=== PATIENT | male | born 1985 ===

== ENCOUNTER 2025-04-09 21:07 | Inpatient (IN) | payer OTHER, SELFPAY ==
--- OUTSIDE RECORDS SUMMARY | 2025-04-09 21:17 | XMS_ITS | Encounter Summary ---
Author Organization [employer]: [facility] Address [address] [place] [address] [place] [address] Care Team Providers Care Pack Train Driver Name Role Phone Pcp, Consuelo MD Primary Care Provider Unavailabl e Encounter Details Date Type Department Care Team (Late st Contact Info) Description 06/02/2020 Notation [facility] Health Information Management [facility], [address] [place] [address] Generic, Provider [address] [address] [employer] Social History Tobacco Use Types Packs/Day Years Used Date Smoking Tobacco: Some Days Cigarettes Smokeless Tobacco: Current Alcohol Use Standard Drinks/Week Comments Never 0 (1 standard drink = 0.6 oz pur e alcohol) occ Social Connection and Isolation Panel Answer Date Recorded In a typical week, how many times do you talk on the phone with family, friends, or neighbors? Never 06/02/2020 How often do you get together with friends or re latives? Never 06/02/2020 How often do you attend bahai or islam serv ices? Never 06/02/2020 Do you belong to any clubs o r organizations such as bahai groups, unions, fraternal or athletic groups, or school groups? No 06/02/2020 How often do you attend meet ings of the clubs or organizations you belong to? Never 06/02/2020 Are you , , di vorced, , never , or living with a partner? Never 06/02/2020 AUDIT-C Answer Date Recorded Frequency of Alcohol Consumption Never 06/02/2020 Average Number of Drinks Not asked 021 Frequency of Binge Drinking Not asked 10/2020 Overall Financial Resource Strain (CARDIA) Answe r Date Recorded How hard is it for you to pa y for the very basics like food, housing, medical care, and heating? Very hard 06/02/2020 PHQ-2 Answer Date Recorded PHQ-2 Total Score - Complete PHQ-9 if score >=3 4 06/02/2020 [facility] Occupat ional [facility] - Occupational Stress Questionnaire Answer Date Recorded Do you feel stress - tense, restless, nervous, or anxious, or unable to sleep at night because your mind is troubled all the time - these days? Very much 06/02/2020 Exercise Vital Sign Answer Date Recorde d On average, how many days pe r week do you engage in moderate to strenuous exercise (like a brisk walk)? 0 days 06/02/2020 On average, how many minutes do you engage in exercise at this level? 0 min 06/02/2020 Hunger Vital Sign Answer Date Recorded Within the past 12 months, y ou worried that your food would run out before you got the money to buy more. Often true 06/02/19 21 Within the past 12 months, t he food you bought just didn't last and you didn't have money to get more. Often true 06/02/2020 PRAPARE - Transportation Answer Date Re corded In the past 12 months, has l ack of transportation kept you from medical appointments or from getting medications? Yes 10/2020 In the past 12 months, has l ack of transportation kept you from meetings, work, or from getting things needed for daily living? Yes 06/02/2020 Education Answer Date Recorded What is the highest level of school you have completed or the highest degree you have received? Some college, no degree 06/02/2020 Sex and Gender Information Value Date Recorded Sex Assigned at Not on file Legal Sex Male 4:19 PM EDT Gender Identity Not on file Sexual Orientation Not on file COVID-19 Exposure Response Date Recorded In the last month, have you been in contact with someone who was confirmed or suspected to have Coronavirus / COVID-19? No / Unsure 06/02/2020 5:01 AM EST documented as of this encounter Functional Status * Actual/Potential Lethality (Most Lethal Attempt) Question Answer Date of Assessment Author Actual Lethality/Medical Dam age Code (Most Lethal Attempt) 0 06/02/2020 7:48 AM EST Jyothi, Me yael, [place] * Actual/Potential Lethality (Most Recent Attempt) Question Answer Date of Assessment Author Actual Lethality/Medical Dam age Code (Most Recent Attempt) 0 06/02/2020 7:48 AM EST Jyothi, Me yael, [place] * Actual/Potential Lethality (Initial/First Attempt) Question Answer Date of Assessment Author Actual Lethality/Medical Dam age Code (Initial/First Attempt) 3 06/02/2020 7:48 AM EST Katherine Roe, [place] Potential Lethality Code (Initial/First Attempt) 2 06/02/2020 7:48 AM EST JyothiStacia sa, [place] * Calculated C-SSRS Risk Score (Lifetime/Recent) Answer Date of Assessment Author Moderate Risk 06/02/2020 7:48 AM EST Jyothi M skylar, [place] * Suicidal Ideation Question Answer Date of Assessment Author 1. Wish to be (Lifetime) Yes 06/02/2020 7:48 AM EST Katherine Roe [place] 2. Non-Specific Active Suici fidencio Thoughts (Lifetime) Yes 06/02/2020 7:48 AM EST JyothiKatherine, [place] 3. Active Suicidal Ideation with any Methods (Not Plan) Without Intent to Act (Lifetime) No 06/02/2020 7:48 AM EST Ayleen Roe, [place] 4. Active Suicidal Ideation with Some Intent to Act, Without Specific Plan (Lifetime) No 06/02/2020 7:48 AM EST Ayleen Roe, [place] 5. Active Suicidal Ideation with Specific Plan and Intent (Lifetime) Yes 06/02/2020 7:48 AM EST Katherine Roe, [place] 1. Wish to be (Past 1 Month) No 021 7:48 AM EST JyothiKatherine, [place] 2. Non-Specific Active Suici fidencio Thoughts (Past 1 Month) No 06/02/2020 7:48 AM EST JyothiStacia sa, [place] 5. Active Suicidal Ideation with Specific Plan and Intent (Past 1 Month) No 06/02/2020 7:48 AM EST Katherine Roe, [place] * Intensity of Ideation Question Answer Date of Assessment Author Reasons for Ideation (Lifetime) 4 7:48 AM EST Katherine Roe MA Reasons for Ideation (Past 1 Month) 2 06/02 7:48 AM Katherine Fabian MA * Suicidal Behavior Question Answer Date of Assessment Author Actual Attempt (Lifetime) Yes 06/02/2020 7:48 AM Katherine Fabian MA Total Number of Actual Attem pts (Lifetime) 1 06/02/2020 7:48 AM Katherine Fabian MA Has subject engaged in non-s uicidal self-injurious behavior? (Lifetime) No 06/02/2020 7:48 AM EST Katherine Limon MA Interrupted Attempts (Lifetime) Yes 7:48 AM EST Katherine Roe MA Total Number of Interrupted Attempts (Lifetime) 1 06/02/2020 7:48 AM Katherine Fabian MA Aborted or Self-Interrupted Attempt (Lifetime) No 06/02/2020 7:48 AM Katherine Fabian MA Preparatory Acts or Behavior (Lifetime) No 06/02/2020 7:48 AM Katherine Fabian MA Actual Attempt (Past 3 Months) No 06/02/2020 7:48 AM Katherine Fabian MA documented as of this encounter Plan of Treatment Not on file documented as of this encounter Visit Diagnoses Not on filedocumented in this encounter Care Teams Pack Train Driver Relationship Specialty Start Date End Date Pcp, MD Consuelo PCP - General Generic/Test/No PCP 09/22/19 documented as of this encounter
--- OUTSIDE RECORDS SUMMARY | 2025-04-09 21:17 | XMS_ITS | Encounter Summary ---
Author Organization [employer]: [facility] & [facility] Address [address] [place] [address] [place] [address] Care Team Providers Care Sock Folder Name Role Phone Pcp, Consuelo MD Primary Care Provider Unavailabl e Encounter Details Date Type Department Care Team (Late st Contact Info) Description 06/02/2020 Notation [facility] Health Information Management [facility] [address] [place] [address] Generic, Provider [address] [address] [place] Social History Tobacco Use Types Packs/Day Years [...] Never 06/02/2020 How often do you attend jainism or sabianist serv ices? Never 06/02/2020 Do you belong to any clubs o r organizations such as jainism groups, unions, fraternal or athletic groups, or [...] Complete PHQ-9 if score >=3 4 06/02/2020 [facility] of Occupat ional [facility] - Occupational Stress Questionnaire Answer Date Recorded [...] (Initial/First Attempt) 2 06/02/2020 7:48 AM EST Stacia Roe sa, [place] * Calculated C-SSRS Risk Score [...] Plan (Lifetime) No 06/02/2020 7:48 AM EST Maricruz Roe, [place] 5. Active Suicidal Ideation with [...] on filedocumented in this encounter Care Teams Sock Folder Relationship Specialty Start Date End Date Pcp, MD Consuelo PCP - General Generic/Test/No PCP 09/22/19 documented as of this encounter
--- OUTSIDE RECORDS SUMMARY | 2025-04-09 21:17 | XMS_ITS | Clinical Summary ---
Author Organization [employer]: [facility] Care Address [address] [place] [address] Care Team Providers Care Five Piece Expansion Maker Hand Name Role Phone Pcp, No MD Primary Care Provider Unavailabl e Allergies Active Allergy Reactions Criticality Noted Date Comments Penicillins 11/08/2022 Phenobarbital 11/08/2022 Medications buPROPion ER, SR, (WELLBUTRIN-SR) 150 MG Oral TABLET SR 12 HR Take 150 mg by mouth TWICE A DAY. Swallow whole. Do not crush or chew. Active gabapentin (NEURONTIN) 100 MG Oral Cap Take 100 mg by mouth 3 TIMES A DAY. Active Buprenorphine HCl-Naloxone HCl 2-0.5 MG Sublingual SL Tab Dissolve 1 Tab under the tongue TWICE A DAY. 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 Never 06/02/2020 How often do you get together with friends or re latives? Never 06/02/2020 How often do you attend yazidism or zoroastrian serv ices? Never 06/02/2020 Do you belong to any clubs o r organizations such as yazidism groups, unions, fraternal or athletic groups, or school groups? No 06/02/2020 How often do you attend meet ings of the clubs or organizations you belong to? Never 06/02/2020 Are you , , di vorced, , never , or living with a partner? Never 06/02/2020 AUDIT-C Answer Date Recorded Q1: How often do you have a drink containing alc ohol? Never 06/16/2020 Q2: How many drinks containi ng alcohol do you have on a typical day when you are drinking? Not asked 06/16/2020 Q3: How often do you have six or more drinks on one occasion? Not asked 06/16/2020 Overall Financial Resource Strain (CARDIA) Answe r Date Recorded How hard is it for you to pa y for the very basics like food, housing, medical care, and heating? Very hard 06/02/2020 PHQ-2 Answer Date Recorded PHQ-2 Total Score - Complete PHQ-9 if score >=3 4 06/02/2020 [facility] - Occupational Stress Questionnaire Answer Date Recorded [...] on file Sexual Orientation Not on file Last Filed Vital Signs Vital Sign Reading Time Taken Comments Blood Pressure 130/95 11/24/2022 8:34 AM EDT Pulse 97 11/24/2022 8:34 AM EDT Temperature 36.9 C (98.5 F) 11/24/2022 8:34 AM EDT Respiratory Rate 17 11/24/2022 8:34 AM EDT Oxygen Saturation 97% 11/24/2022 8:34 AM EDT Inhaled Oxygen Concentration - - Weight 124.1 kg (273 lb 9.5 oz) 11/24/2022 7:30 AM EDT Height 180.3 cm (5' 11 ) 11/08/2022 4:33 AM EDT Body Mass Index 38.16 11/08/2022 4:33 AM EDT Plan of Treatment Health Maintenance Due Date Last Done Comments Cholesterol 1985 Varicella Vaccines (1 of 2 - 13+ 2-dose series) 1998 HIV Screening 2000 Hepatitis C Screening 10/28/2003 DTaP/Tdap/Td Vaccines (1 - Tdap) 2004 Hepatitis B Vaccines (1 of 3 - 19+ 3-dose series) 2004 HPV Vaccines (1 - 3-dose SCD M series) 2012 Diabetes Screening 06/02/2023 06/02/2020, 09/23/2019, 09/10/2019 COVID-19 Vaccine (2023-2 5 season) 2025 Influenza Vaccine (#1) 2025 HIB Vaccines Aged Out No longer eligi ble based on patient's age to complete this topic Hepatitis A Vaccines Aged Out No long er eligible based on patient's age to complete this topic IPV Vaccines Aged Out No longer eligi ble based on patient's age to complete this topic Meningococcal B (MenB) Vaccines Aged Out No longer eligible b ased on patient's age to complete this topic Meningococcal Vaccines Aged Out No lo nger eligible based on patient's age to complete this topic Pneumococcal Vaccine: Pediatrics (0-5 years) and At-Risk Patients (6-50 years) Aged Out No longer eligible based on patient's age to complete this topic Procedures Procedure Name Priority Date/Time Associated Diagnosis Comments COMPREHENSIVE METABOLIC PANEL STAT 06/02/2020 6:08 AM EST from Last 3 Months or Most Recently Relevant to Health Maintenance Results * (ABNORMAL) Comprehensive Metabolic Panel (06/02/2020 6:08 AM EST) Sodium 138 136 - 145 mmol/L LAB SEROLOGY [facility] METHOD 06/02/2020 6:54 AM [facility] Potassium 4.0 3.5 - 5.1 mmol/L LAB SEROLOGY ATELLICA METHOD 06/02/2020 6:54 AM [facility] Chloride 105 98 - 107 mmol/L LAB SEROLOGY ATELLICA METHOD 06/02/2020 6:54 AM [facility] Carbon Dioxide 25 20 - 31 mmol/L LAB SEROLOGY [facility]ELLICA METHOD 06/02/2020 6:54 AM [facility] Anion Gap 8 5 - 15 mmol/L 06/02/2020 6:54 AM [facility] Glucose 100 74 - 100 mg/dL LAB SEROLOGY ATELLICA METHOD 06/02/2020 6:54 AM [facility] BUN 25(H) 9 - 23 mg/dL LAB SEROLOGY ATELLICA METHOD 06/02/2020 6:54 AM [facility] Creatinine 1.05 0.60 - 1.10 mg/dL LAB SEROLOGY ATELLICA METHOD 06/02/2020 6:54 AM [facility] BUN/Creatinine Ratio 23.81 06/02/2020 6:54 AM [facility] Calcium 9.1 8.3 - 10.6 mg/dL LAB SEROLOGY ATELLICA METHOD 06/02/2020 6:54 AM [facility] Protein, Total 7.1 5.7 - 8.2 g/dL LAB SEROLOGY ATELLICA METHOD 06/02/2020 6:54 AM [facility] Albumin 4.7 3.2 - 4.8 g/dL LAB SEROLOGY ATELLICA METHOD 06/02/2020 6:54 AM [facility] AST 48(H) 13 - 40 U/L LAB SEROLOGY [facility]ELLICA METHOD 06/02/2020 6:54 AM [facility] ALT 44(H) <=40 U/L LAB SEROLOGY [facility]ELLICA METHOD 06/02/2020 6:54 AM [facility] ALK Phos 146(H) 46 - 116 U/L LAB SEROLOGY ATELLICA METHOD 06/02/2020 6:54 AM [facility] Bilirubin, Total 0.6 0.3 - 1.2 mg/dL LAB SEROLOGY ATELLICA METHOD 06/02/2020 6:54 AM [facility] Globulin 2.4 g/dL 06/02/2020 6:54 AM [facility] Albumin Globulin Ratio 1.96 06/02/2020 6:54 AM [facility] eGFR >90.0 >=60.0 mL/min/1.7 3m*2 06/02/2020 6:54 AM [facility] Blood ENTIRE ANTECUBITAL VEIN / Unknown Venipuncture / Unknown 06/02/2020 6:08 AM EST 06/02/2020 6:14 AM EST us Huey Haro MD LAB BLOOD ORDERABLES Final Resu lt [facility] [address] [place] [address] from Last 3 Months or Most Recently Relevant to Health Maintenance Insurance NONE (Home) NONE (Work) [address] [place] [address] MEDICAID [place] [facility] NONE (Home) NONE (Work) [address] [place] [address] MEDICAID [facility] NONE (Home) NONE (Work) [address] [place] [address] Care Teams Five Piece Expansion Maker Hand Relationship Specialty Start Date End Date PcpConsuelo MD PCP - General Generic/Test/No PCP 09/22/19
--- OUTSIDE RECORDS SUMMARY | 2025-04-09 21:17 | XMS_ITS | Encounter Summary ---
Author Organization [facility] Address [address] [place] [address] Care Team Providers Care Primary Teacher Name Role Phone Nancy Pace NP Primary Care Provider [phone] Ivory Garcia MD Primary Care Provider [phone] Reason for Visit * Reason Onset Date Comments Hospital Follow-up 04/06/2023 Encounter Details Date Type Department Care Team (Late st Contact Info) Description 04/06/2023 Telephone Adult Medicine [address] [place] [address] Nancy Pace NP [address] [place] [address] Hospital Follow-up Social History Tobacco Use Types Packs/Day Years Used Date Smoking Tobacco: Never Assessed Sex and Gender Information Value Date Recorded Sex Assigned at Male 03/24/2022 5:38 PM EDT Legal Sex Male 5:38 PM EDT Gender Identity Male 03/24/2022 5:38 PM EDT Sexual Orientation Straight 03/24/2022 5: 38 PM EDT documented as of this encounter Miscellaneous Notes * Telephone Encounter - Joan Hernandez CNA - 04/10/2023 4:25 PM EST LVM x2 on both #'s on file with cb # * Telephone Encounter - Everett Ruby - 04/06/2023 3:54 PM EST LVM FOR [facility] * Telephone Encounter - Argenis Prather - 04/06/2023 2:55 PM EST Needs a call back for a hospital discharge. Patient discharging Sunday04/09/23. Looking for a follow up within 7-10 days. Dx: psych Catherine expressed frustration with this process of call back, states in the past has never gotten a call back. Back Shoe Cutter explained this is the protocol, and cannot make appt for her. Back Shoe Cutter offered to look into past case, she states she does not even remember the pt but remembers not getting a call back. Requesting urgency and to please call her back for this. documented in this encounter Plan of Treatment Not on file documented as of this encounter Visit Diagnoses Not on filedocumented in this encounter Care Teams Primary Teacher Relationship Specialty Start Date End Date Nancy Pace NP [address] [place] [address] PCP - General Family Medicine 07/15/22 12/05/23 Ivory Garcia MD [address] [place] [address] PCP - General Family Medicine 10/08/24 documented as of this encounter
--- OUTSIDE RECORDS SUMMARY | 2025-04-09 21:17 | XMS_ITS | Clinical Summary ---
Author Organization [employer] Address [address] [facility] [address] [place] [address] Care Team Providers Care Air Valve Mechanic Name Role Phone Ivory Garcia MD Primary Care Provider [phone] Allergies No known active allergies Active Problems Problem Noted Date Diagnosed Date Anxiety with depression 07/06/2022 Opioid dependence, uncomplicated (CMS/HCC) 07/06 Other psychoactive substance dependence, uncompl icated 07/06/2022 Social History Tobacco Use Types Packs/Day Years Used Date Smoking Tobacco: Never Assessed Sex and Gender Information Value Date Recorded Sex Assigned at Male 03/24/2022 5:38 PM EDT Legal Sex Male 5:38 PM EDT Gender Identity Male 03/24/2022 5:38 PM EDT Sexual Orientation Straight 03/24/2022 5: 38 PM EDT Plan of Treatment Health Maintenance Due Date Last Done Comments Depression Screening 1985 Lipid Panel 1985 SDOH Screening 1985 Disability Screening 1985 Alcohol/Substance Use Screening 1997 Tobacco Screening 1997 Family Planning (PISQ) 2000 HPV Vaccines (1 - Male 3-dos e series) 2000 Hepatitis C Screening 10/28/2003 DTaP/Tdap/Td Vaccines (1 - Tdap) 2004 Hepatitis B Vaccines (1 of 3 - 19+ 3-dose series) 2004 COVID-19 Vaccine (1 - 2024-2 6 season) 2025 Influenza Vaccine (#1) 2025 Zoster Vaccines (1 of 2) 10/28/2035 RSV Patients and Pa tients Aged 60 years or older (1 - 1-dose 75+ series) 2060 HIV Screening Completed 07/15/2022 HIB Vaccines Aged Out No longer eligi ble based on patient's age to complete this topic Hepatitis A Vaccines Aged Out No long er eligible based on patient's age to complete this topic IPV Vaccines Aged Out No longer eligi ble based on patient's age to complete this topic Meningococcal B Vaccine Aged Out No l onger eligible based on patient's age to complete this topic Meningococcal Vaccine Aged Out No jessica minor eligible based on patient's age to complete this topic Pneumococcal Vaccine: Pediat rics (0 to 5 Years) and At-Risk Patients (6 to 49) Years Aged Out No longer eligi ble based on patient's age to complete this topic RSV under 20 months Aged Out No longe r eligible based on patient's age to complete this topic Rotavirus Vaccines Aged Out No longer eligible based on patient's age to complete this topic Insurance [facility] [employer] Care Teams Air Valve Mechanic Relationship Specialty Start Date End Date Ivory Garcia MD [address] [place] [address] PCP - General Family Medicine 10/08/24
--- OUTSIDE RECORDS SUMMARY | 2025-04-09 21:17 | XMS_ITS | Encounter Summary ---
Author Organization [facility] Address [address] [place] [address] [address] [place] [address] Care Team Providers Care Phd Internship Name Role Phone Ivory Garcia MD Primary Care Provider [phone] Reason for Visit * Reason Onset Date Comments Hospital Follow-up 05/12/2024 Discharge f/u apt Encounter Details Date Type Department Care Team (Late st Contact Info) Description 05/12/2024 Telephone Adult Medicine [address] [place] [address] David, HANY Franco [facility] Follow-up (Discharge f/u apt) Social History Tobacco Use Types Packs/Day Years Used Date Smoking Tobacco: Never Assessed Sex and Gender Information Value Date Recorded Sex Assigned at Male 03/24/2022 5:38 PM EDT Legal Sex Male 5:38 PM EDT Gender Identity Male 03/24/2022 5:38 PM EDT Sexual Orientation Straight 03/24/2022 5: 38 PM EDT documented as of this encounter Miscellaneous Notes * Telephone Encounter - Everett Ruby - 05/12/2024 12:13 PM EST BOOKED 05/19/2024 * Telephone Encounter - Breanne Barreto - 05/12/2024 11:13 AM EST Pt discharging 05/13 from [facility] in [place] and pt needs a f/u within 7days. Pt treated for psych. (New PT) documented in this encounter Plan of Treatment Not on file documented as of this encounter Visit Diagnoses Not on filedocumented in this encounter Care Teams Phd Internship Relationship Specialty Start Date End Date Ivory Garcia MD [address] [place] [address] PCP - General Family Medicine 10/08/24 documented as of this encounter
--- OUTSIDE RECORDS SUMMARY | 2025-04-09 21:17 | XMS_ITS | Encounter Summary ---
Author Organization [employer] Address [address] [place] [address] [place] [address] Care Team Providers Care Marine Farmer Name Role Phone Ivory Garcia MD Primary Care Provider [phone] Reason for Visit * Reason Onset Date Comments Hospital Follow-up 11/26/2024 Encounter Details Date Type Department Care Team (Late st Contact Info) Description 11/26/2024 Telephone Adult Medicine [address] [place] [address] Ivory Garcia MD [address] [place] [address] Hospital Follow-up Social History Tobacco Use Types [...] * Telephone Encounter - Everett Ruby - 12/15/2024 12:57 PM EDT Called sanjuana 2x lvm * Telephone Encounter - Ge Hogan - 12/15/2024 8:13 AM EDT Sanjuana from [facility] called to schedule a hospital discharge f/u appointment for the pt who will be discharged today. Call back is [phone], ext. [phone]. * Telephone Encounter - Treasure Nguyen - 11/26/2024 10:54 AM EDT Called pt unable to LVM with appt date. Booked for 12/09/2024 * Telephone Encounter - Susan Dan - 11/26/2024 10:14 AM EDT Patient was in the hospital due to depression and suicidal ideation and plan overdose, patient willbe discharge tomorrow. Rodolfo stated that you can leave a voice message with the appointment date. VM is confidential. documented in this encounter Plan of Treatment Not on file documented as of this encounter Visit Diagnoses Not on filedocumented in this encounter Care Teams Marine Farmer Relationship Specialty Start Date End Date Ivory Garcia MD [address] [place] [address] PCP - General Family Medicine 10/08/24 documented as of this encounter
--- OUTSIDE RECORDS SUMMARY | 2025-04-09 21:17 | XMS_ITS | Encounter Summary ---
Author Organization [employer]: [facility] & [facility] Address [address] [place] [address] [place] [address] Care Team Providers Care Field Evidence Technician Name Role Phone Pcp, Consuelo MD Primary Care Provider Unavailabl e Encounter Details Date Type Department Care Team (Late st Contact Info) Description 06/02/2020 Notation [facility] Health Information Management [facility] [address] [place] [address] Generic, Provider [address] [address] [facility] Social History Tobacco Use Types Packs/Day Years [...] Never 06/02/2020 How often do you attend mormonism or protestant serv ices? Never 06/02/2020 Do you belong to any clubs o r organizations such as mormonism groups, unions, fraternal or athletic groups, or [...] Complete PHQ-9 if score >=3 4 06/02/2020 [facility] - Occupational Stress Questionnaire Answer [...] on filedocumented in this encounter Care Teams Field Evidence Technician Relationship Specialty Start Date End Date Pcp, MD Consuelo PCP - General Generic/Test/No PCP 09/22/19 documented as of this encounter
--- OUTSIDE RECORDS SUMMARY | 2025-04-09 21:17 | XMS_ITS | Encounter Summary ---
Author Organization [employer]: [facility] & [facility] Address [address] [place] [address] [place] [address] Care Team Providers Care Floor Hand Name Role Phone Pcp, No MD Primary Care Provider Unavailabl e Encounter Details Date Type Department Care Team (Late st Contact Info) Description 06/02/2020 Notation [facility] Health Information Management [facility], [address] [place] [address] Generic, Provider [address] [address] SCREENING FORM Social History Tobacco Use Types Packs/Day Years [...] Never 06/02/2020 How often do you attend zoroastrianism or spiritism serv ices? Never 06/02/2020 Do you belong to any clubs o r organizations such as zoroastrianism groups, unions, fraternal or athletic groups, or [...] Complete PHQ-9 if score >=3 4 06/02/2020 [facility] - Occupational Stress Questionnaire Answer Date Recorded [...] Thoughts (Lifetime) Yes 06/02/2020 7:48 AM EST Katherine Roe MA 3. Active Suicidal Ideation with any Methods (Not Plan) Without Intent to Act (Lifetime) No 06/02/2020 7:48 AM EST Ayleen Roe, MA 4. Active Suicidal Ideation with Some Intent to Act, Without Specific Plan (Lifetime) No 06/02/2020 7:48 AM EST Ayleen Roe MA 5. Active Suicidal Ideation with Specific Plan and Intent (Lifetime) Yes 06/02/2020 7:48 AM EST Katherine Limon, MA 1. Wish to be (Past 1 Month) No 021 7:48 AM EST Katherine Roe MA 2. Non-Specific Active Suici fidencio Thoughts (Past 1 Month) No 06/02/2020 7:48 AM EST Stacia Roe sa, [place] 5. Active Suicidal Ideation with Specific Plan and Intent (Past 1 Month) No 06/02/2020 7:48 AM EST Katherine Roe MA * Intensity of Ideation Question Answer [...] MA Interrupted Attempts (Lifetime) Yes 7:48 AM Katherine Fabian MA Total Number of Interrupted Attempts (Lifetime) [...] on filedocumented in this encounter Care Teams Floor Hand Relationship Specialty Start Date End Date Pcp, MD Consuelo PCP - General Generic/Test/No PCP 09/22/19 documented as of this encounter
--- OUTSIDE RECORDS SUMMARY | 2025-04-09 21:17 | XMS_ITS | Encounter Summary ---
Author Organization [employer]: [facility] & [facility] Address [address] [place] [address] [place] [address] Care Team Providers Care Integrated Logistics Support Manager Name Role Phone Pcp, Consuelo MD Primary Care Provider Unavailabl e Encounter Details Date Type Department Care Team (Late st Contact Info) Description 06/02/2020 Notation [facility] Health Information Management [facility], [address] [place] [address] Generic, Provider [address] [address] [employer] Social History Tobacco Use Types Packs/Day Years [...] Never 06/02/2020 How often do you attend yarsani or buddhism serv ices? Never 06/02/2020 Do you belong to any clubs o r organizations such as yarsani groups, unions, fraternal or athletic groups, or [...] Complete PHQ-9 if score >=3 4 06/02/2020 [facility] - Occupational Stress Questionnaire Answer Date [...] 2 06/02/2020 7:48 AM EST Stacia Roe sa MA * Calculated C-SSRS Risk Score (Lifetime/Recent) [...] 06/02/2020 7:48 AM EST Ayleen Roe MA 4. Active Suicidal Ideation with Some Intent to Act, Without Specific Plan (Lifetime) No 06/02/2020 7:48 AM EST Ayleen Roe MA 5. Active Suicidal Ideation with Specific Plan and Intent (Lifetime) Yes 06/02/2020 7:48 AM EST Katherine Limon MA 1. Wish to be (Past 1 [...] Actual Attempt (Lifetime) Yes 06/02/2020 7:48 AM EST Katherine Roe MA Total Number of Actual Attem pts (Lifetime) 1 06/02/2020 7:48 AM EST Katherine Roe MA Has subject engaged in non-s uicidal [...] on filedocumented in this encounter Care Teams Integrated Logistics Support Manager Relationship Specialty Start Date End Date Pcp, MD Consuelo PCP - General Generic/Test/No PCP 09/22/19 documented as of this encounter
--- OUTSIDE RECORDS SUMMARY | 2025-04-09 21:17 | XMS_ITS | Encounter Summary ---
Author Organization [facility] [facility] Address [address] [place] [address] Care Team Providers Care Environmental Services Director Name Role Phone Nancy Pace NP Primary Care Provider + [phone] Ivory Garcia MD Primary Care Provider [phone] Reason for Visit * Reason Onset Date Comments Appointment Request 02/09/2023 Encounter Details Date Type Department Care Team (Late st Contact Info) Description 02/09/2023 Telephone Family Medicine [address] [place] [address] Nancy Pace NP [address] [place] [address] Appointment Request Social History Tobacco Use Types Packs/Day Years Used Date Smoking Tobacco: Never Assessed Sex and Gender Information Value Date Recorded Sex Assigned at Male 03/24/2022 5:38 PM EDT Legal Sex Male 5:38 PM EDT Gender Identity Male 03/24/2022 5:38 PM EDT Sexual Orientation Straight 03/24/2022 5: 38 PM EDT documented as of this encounter Miscellaneous Notes * Telephone Encounter - Pat Nguyen - 02/16/2023 1:44 PM EDT Called vm not set up x1 * Telephone Encounter - Frances Stern - 02/16/2023 11:30 AM EDT Pt no showed last appt (02/15). Can you please assist? Thank you! * Telephone Encounter - [facility] HANY Hernandez - 02/12/2023 7:45 AM EDT LVM x2 both #'s listed on file with cb # * Telephone Encounter - [facility] HANY Hernandez - 02/09/2023 11:44 AM EDT LVM x1 with cb # * Telephone Encounter - Claritza Danielle - 02/09/2023 10:18 AM EDT Disch f/u David luna 02/12 Poly substance abuse SI with no Plan Major Depression [facility] [phone] documented in this encounter Plan of Treatment Not on file documented as of this encounter Visit Diagnoses Not on filedocumented in this encounter Care Teams Environmental Services Director Relationship Specialty Start Date End Date Nancy Pace NP [address] [place] [address] PCP - General Family Medicine 07/15/22 12/05/23 Ivory Garcia MD [address] [place] [address] PCP - General Family Medicine 10/08/24 documented as of this encounter
--- OUTSIDE RECORDS SUMMARY | 2025-04-09 21:17 | XMS_ITS | Encounter Summary ---
Author Organization [employer]: [facility] & [facility] Address [address] [place] [address] [place] [address] Care Team Providers Care Char House Supervisor Name Role Phone Pcp, No MD Primary Care Provider Unavailabl e Encounter Details Date Type Department Care Team (Late st Contact Info) Description 06/02/2020 Notation [facility] Health Information Management [facility], [address] [place] [address] Generic, Provider [address] [address] SCREENING FORM Social History Tobacco Use Types [...] Never 06/02/2020 How often do you attend jain or jewish serv ices? Never 06/02/2020 Do you belong to any clubs o r organizations such as jain groups, unions, fraternal or athletic groups, or [...] Complete PHQ-9 if score >=3 4 06/02/2020 [facility] - Occupational Stress Questionnaire Answer Date [...] on filedocumented in this encounter Care Teams Char House Supervisor Relationship Specialty Start Date End Date Pcp, MD Consuelo PCP - General Generic/Test/No PCP 09/22/19 documented as of this encounter
--- OUTSIDE RECORDS SUMMARY | 2025-04-09 21:17 | XMS_ITS | Encounter Summary ---
Author Organization [employer]: [facility] & [facility] Address [address] [place] [address] [place] [address] Care Team Providers Care Grass Farm Laborer Name Role Phone Pcp, No MD Primary Care Provider Unavailabl e Encounter Details Date Type Department Care Team (Late st Contact Info) Description 06/02/2020 Notation [facility] Health Information Management [facility], [address] [place] [address] Generic, Provider [address] [address] [employer] Social History Tobacco Use Types Packs/Day Years [...] Never 06/02/2020 How often do you attend cheondoism or mormon serv ices? Never 06/02/2020 Do you belong to any clubs o r organizations such as cheondoism groups, unions, fraternal or athletic groups, or [...] Complete PHQ-9 if score >=3 4 06/02/2020 [facility] - Occupational Stress Questionnaire Answer Date [...] Attempt) 0 06/02/2020 7:48 AM EST Jyothi, yael, [place] * Actual/Potential Lethality (Most Recent Attempt) Question Answer Date of Assessment Author Actual Lethality/Medical Dam age Code (Most Recent Attempt) 0 06/02/2020 7:48 AM EST Jyothi, Me yael, [place] * Actual/Potential Lethality (Initial/First Attempt) Question Answer Date of Assessment Author Actual Lethality/Medical Dam age Code (Initial/First Attempt) 3 06/02/2020 7:48 AM EST Katherine Roe MA Potential Lethality Code (Initial/First Attempt) 2 06/02/2020 7:48 AM EST Stacia Roe sa MA * Calculated C-SSRS Risk Score (Lifetime/Recent) Answer Date of Assessment Author Moderate Risk 06/02/2020 7:48 AM EST Jyothi M skylar MA * Suicidal Ideation Question Answer Date [...] No 06/02/2020 7:48 AM EST Stacia Roe sa MA 5. Active Suicidal Ideation with Specific [...] on filedocumented in this encounter Care Teams Grass Farm Laborer Relationship Specialty Start Date End Date Pcp, MD Consuelo PCP - General Generic/Test/No PCP 09/22/19 documented as of this encounter
--- OUTSIDE RECORDS SUMMARY | 2025-04-09 21:17 | XMS_ITS | Encounter Summary ---
Author Organization [employer] [facility] Address [address] [place] [address] Care Team Providers Care Director Agency & Strategic Partnerships Name Role Phone Nancy Pace NP Primary Care Provider + [phone] Ivory Garcia MD Primary Care Provider [phone] Reason for Visit * Reason Onset Date Comments Appointment Request 01/08/2023 Hospital Follow-up 01/08/2023 Encounter Details Date Type Department Care Team (Late st Contact Info) Description 01/08/2023 Telephone Family Medicine [address] [place] [address] Nancy Pace NP [address] [place] [address] Appointment Request; Hospital Follow-up Social History Tobacco Use Types [...] Telephone Encounter - Joan Hernandez CNA - 01/23/2023 9:22 AM EDT Booked ANNABELLE 02/01/23 * Telephone Encounter - Joan Hernandez CNA - 01/22/2023 2:38 PM EDT LVM x1 with cb # * Telephone Encounter - Halina Heredia - 01/22/2023 1:22 PM EDT Angel call today to book a ANNABELLE appt for Psych f/u. Please call Angel. Thanks * Telephone Encounter - Joan Hernandez CNA - 01/09/2023 12:23 PM EDT LVM X2 with cb # * Telephone Encounter - Joan Hernandez CNA - 01/09/2023 10:07 AM EDT LVM X1 with cb # on home phone # listed. * Telephone Encounter - Claritza Danielle - 01/08/2023 3:48 PM EDT Disch f/u [facility] 01/08 Depression and substance use [facility] [phone] documented in this encounter Plan of Treatment Not on file documented as of this encounter Visit Diagnoses Not on filedocumented in this encounter Care Teams Director Agency & Strategic Partnerships Relationship Specialty Start Date End Date Nancy Pace NP [address] [place] [address] PCP - General Family Medicine 07/15/22 12/05/23 Ivory Garcia MD [address] [place] [address] PCP - General Family Medicine 10/08/24 documented as of this encounter
--- OUTSIDE RECORDS SUMMARY | 2025-04-09 21:17 | XMS_ITS | Encounter Summary ---
Author Organization [email or web address] [facility] Address [address] [place] [address] 7[address] [place] [address] Care Team Providers Care Neighborhood Conservation Officer Name Role Phone Ivory Garcia MD Primary Care Provider [phone] Reason for Visit * Reason Onset Date Comments Hospital Follow-up 10/08/2024 Encounter Details Date Type Department Care Team (Late st Contact Info) Description 10/08/2024 Telephone Adult Medicine [address] [place] [address] Provider, Not In System Hospital Follow-up Social History Tobacco Use Types [...] * Telephone Encounter - Everett Ruby - 10/08/2024 3:24 PM EDT Booked 10/16/2024 * Telephone Encounter - Arnol Parish - 10/08/2024 2:53 PM EDT Rashida from [facility] in [place] calling for Hosp DC appt 09/1523, [facility], went infor Suicidal Ideation ANNABELLE with PCP In 7 days and appt with [facility]. Rashida [phone] Pt has not been seen by PCP-no show or cx appt. Pt number is [phone]. documented in this encounter Plan of Treatment Not on file documented as of this encounter Visit Diagnoses Not on filedocumented in this encounter Care Teams Neighborhood Conservation Officer Relationship Specialty Start Date End Date Ivory Garcia MD [address] [place] [address] PCP - General Family Medicine 10/08/24 documented as of this encounter
--- OUTSIDE RECORDS SUMMARY | 2025-04-09 21:18 | XMS_ITS | Encounter Summary ---
Author Organization [employer] [facility] Address [address] [place] [address] 7 [place] [address] Care Team Providers Care Brand Designer Name Role Phone Nancy Pace NP Primary Care Provider [phone] Ivory Garcia MD Primary Care Provider [phone] Reason for Visit * Reason Onset Date Comments Hospital Follow-up 05/03/2023 Encounter Details Date Type Department Care Team (Late st Contact Info) Description 05/03/2023 Telephone Family Medicine [address] [place] [address] Nancy Pace NP [address] [place] [address] Hospital Follow-up Social History Tobacco Use Types [...] Telephone Encounter - Joan Hernandez CNA - 05/03/2023 11:46 AM EST Booked 05/09/23 patient will need [facility] as well. * Telephone Encounter - Krissy Vela - 05/03/2023 10:56 AM EST Pietro with [facility] called requesting a hospital follow up. Patient is being seen for depression, substance abuse . Please give patient an appointment within 3weeks. documented in this encounter Plan of Treatment Not on file documented as of this encounter Visit Diagnoses Not on filedocumented in this encounter Care Teams Brand Designer Relationship Specialty Start Date End Date Nancy Pace NP [address] [place] [address] PCP - General Family Medicine 07/15/22 12/05/23 Ivory Garcia MD [address] [place] [address] PCP - General Family Medicine 10/08/24 documented as of this encounter
--- OUTSIDE RECORDS SUMMARY | 2025-04-09 21:18 | XMS_ITS | Encounter Summary ---
Author Organization [employer] Address [address] [place] [address] 7[address] [place] [address] Care Team Providers Care Senior Architect/Design Manager Name Role Phone Ivory Garcia MD Primary Care Provider [phone] Reason for Visit * Reason Onset Date Comments Hospital Follow-up 02/27/2024 Encounter Details Date Type Department Care Team (Late st Contact Info) Description 02/27/2024 Telephone Adult Medicine [address] [place] [address] Provider, Not In System Hospital Follow-up Social [...] * Telephone Encounter - Everett Ruby - 02/27/2024 3:09 PM EDT Called lvm to call back * Telephone Encounter - Ge Hogan - 02/27/2024 12:56 PM EDT Kasie called back and said nobody has called her back to schedule an appointment for the Pt. * Telephone Encounter - Roopa Gupta - 02/27/2024 10:15 AM EDT Pt is in the [facility] and is going to be Discharge today 02/26 Reason :Psychiatry Pt needs be sign up with PCP for f/u and needs to go for [facility] too Please call back Kasie after 11:00 am for appt documented in this encounter Plan of Treatment Not on file documented as of this encounter Visit Diagnoses Not on filedocumented in this encounter Care Teams Senior Architect/Design Manager Relationship Specialty Start Date End Date Ivory Garica MD [address] [place] [address] PCP - General Family Medicine 10/08/24 documented as of this encounter
--- OUTSIDE RECORDS SUMMARY | 2025-04-09 21:18 | XMS_ITS | Clinical Summary ---
Author Organization [employer] [facility] Address [address] [place] [address] Care Team Providers Care Gastroenterologist Name Role Phone Jackie Garcia MD Primary Care Provider Ruby Carpio MD Unavailable [phone] Allergies Active Allergy Reactions Criticality Noted Date Comments Penicillins Anaphylaxis High 07/31/2021 Phenobarbital Anaphylaxis High 07/31/2021 Medications buPROPion 450 MG TB24 Take 450 mg by mouth daily 30 tablet 07/25/2024 Active methadone (DOLOPHINE) 5 MG tablet Take 33 tablets by mouth daily Max Daily Amount: 165 mg 07/25/2024 Active Active Problems Problem Noted Date Diagnosed Date Adjustment disorder with depressed mood 07/10/19 25 Tobacco use disorder 07/10/2024 Routine health maintenance 07/10/2024 Opioid abuse 03/13/2023 Depression 03/13/2023 Stimulant use disorder 03/13/2023 Benzodiazepine abuse 03/13/2023 Social History Tobacco Use Types Packs/Day Years Used Date Smoking Tobacco: Every Day Cigarettes 0.5 22.8 Started: 07/09/2002 Passive Smoke Exposure: Current Smokeless Tobacco: Never Tobacco Cessation:Ready to Q uit: No; Counseling Given: Yes Sex and Gender Information Value Date Recorded Sex Assigned at Not on file Legal Sex Male 9:03 PM EDT Gender Identity Office use only: Info not collec aniya 07/10/2024 5:58 AM EST Sexual Orientation Office use only: Info not col lected 07/10/2024 5:58 AM EST Last Filed Vital Signs Vital Sign Reading Time Taken Comments Blood Pressure 124/85 07/24/2024 7:22 AM EST Pulse 100 07/24/2024 7:22 AM EST Temperature 36.8 C (98.3 F) 07/24/2024 7:22 AM EST Respiratory Rate 20 07/13/2024 7:00 AM EST Oxygen Saturation 95% 07/24/2024 7:22 AM EST Inhaled Oxygen Concentration - - Weight 127.9 kg (282 lb) 07/09/2024 9:20 PM EST Height 174.6 cm (5' 8.75 ) 07/09/2024 9:20 PM ES T Body Mass Index 41.95 07/09/2024 9:20 PM EST Plan of Treatment Not on file Insurance [facility] Care Teams Gastroenterologist Relationship Specialty Start Date End Date Jackie Garcia MD [address] [place] [address] PCP - General Internal Medicine 03/13/23 Ruby Carpio MD [address] [place] [address] PCP - Insurance PCP 03/14/23
--- OUTSIDE RECORDS SUMMARY | 2025-04-09 21:18 | XMS_ITS | Encounter Summary ---
Author Organization [employer] [facility] Address [address] [place] [address] Care Team Providers Care Rod Drawer Name Role Phone Nancy Pace NP Primary Care Provider [phone] Ivory Garcia MD Primary Care Provider [phone] Reason for Visit * Reason Onset Date Comments Msg. to PCP 05/08/2023 Encounter Details Date Type Department Care Team (Late st Contact Info) Description 05/08/2023 Telephone Family Medicine [address] [place] [address] Nancy Pace NP [address] [place] [address] Msg. to PCP Social History Tobacco Use Types Packs/Day Years [...] Telephone Encounter - Joan Hernandez CNA - 05/16/2023 10:36 AM EST LVM x2 on patients number with cb # as well as number listed below. * Telephone Encounter - Joan Hernandez CNA - 05/15/2023 10:38 AM EST Tried calling number listed below multiple times, number rang then kept dropping. Unable to reach facility to book appointment. LVM x1 on patients number on file with cb info. * Telephone Encounter - Claritza Danielle - 05/15/2023 8:06 AM EST Pt needing disch f/u 05/15 Substance abuse Emma [phone] * Telephone Encounter - Marilyn Gupta - 05/08/2023 8:14 AM EST Wanting to notify PCP pt. was readmitted on 05/05 to [facility] for Substance use. No discharge date yet. documented in this encounter Plan of Treatment Not on file documented as of this encounter Visit Diagnoses Not on filedocumented in this encounter Care Teams Rod Drawer Relationship Specialty Start Date End Date Nancy Pace NP [address] [place] [address] PCP - General Family Medicine 07/15/22 12/05/23 Ivory Garcia MD [address] [place] [address] PCP - General Family Medicine 10/08/24 documented as of this encounter
--- OUTSIDE RECORDS SUMMARY | 2025-04-09 21:18 | XMS_ITS | Encounter Summary ---
Author Organization [employer] [facility] Address [address] [place] [address] Care Team Providers Care Medical Assisting Program Director Name Role Phone Nancy Pace NP Primary Care Provider + [phone] Ivory Garcia MD Primary Care Provider [phone] Reason for Visit * Reason Onset Date Comments Hospital Follow-up 06/04/2023 Encounter Details Date Type Department Care Team (Late st Contact Info) Description 06/04/2023 Telephone Family Medicine [address] [place] [address] Nancy Pace NP [address] [place] [address] Hospital Follow-up Social History Tobacco Use Types [...] Telephone Encounter - Joan Hernandez CNA - 06/12/2023 8:40 AM EST LVM x1 with cb # * Telephone Encounter - Marilyn Gupta - 06/11/2023 1:42 PM EST Pt. Returning calling stating will be discharged sometime next week. Needing F/U with PCP / referral for Sleep Study. * Telephone Encounter - Frances Stern - 06/08/2023 3:58 PM EST Pt missed last appt (06/08) Can you please assist? Thank you! * Telephone Encounter - Claritza Danielle - 06/08/2023 10:14 AM EST Pt called stating now currently inpt ant [facility] Discharge prob next week SI and substance abuse (pt line) * Telephone Encounter - Joan Hernandez CNA - 06/04/2023 10:08 AM EST Booked 06/08/23 * Telephone Encounter - Marilyn Gupta - 06/04/2023 8:20 AM EST Pt. admitted to [facility] on 05/29 for Increase symptoms of depression, anxiety, and SI.Requesting S referral. Pt. being discharged today at around 12 pm needing F/U please. documented in this encounter Plan of Treatment Not on file documented as of this encounter Visit Diagnoses Not on filedocumented in this encounter Care Teams Medical Assisting Program Director Relationship Specialty Start Date End Date Nancy Pace NP [address] [place] [address] PCP - General Family Medicine 07/15/22 12/05/23 Ivory Garcia MD [address] [place] [address] PCP - General Family Medicine 10/08/24 documented as of this encounter
--- OUTSIDE RECORDS SUMMARY | 2025-04-09 21:18 | XMS_ITS | Encounter Summary ---
Author Organization [facility]: [facility] Address [address] [place] [address] [place] [address] Care Team Providers Care Microbiology Technician Name Role Phone Pcp, No MD Primary Care Provider Unavailabl e Encounter Details Date Type Department Care Team (Late st Contact Info) Description 06/02/2020 Notation [facility] Health Information Management [facility], [address] [place] [address] Generic, Provider [address] [address] DGN AUTH & CONSENT TO DISCLOSE PHI Social History Tobacco Use Types Packs/Day Years [...] Never 06/02/2020 How often do you attend religious or jehovah's witness serv ices? Never 06/02/2020 Do you belong to any clubs o r organizations such as religious groups, unions, fraternal or athletic groups, or [...] Complete PHQ-9 if score >=3 4 06/02/2020 [facility] - Occupational Stress Questionnaire Answer Date [...] Reasons for Ideation (Lifetime) 4 7:48 AM Katherine Fabian MA Reasons for Ideation (Past 1 Month) [...] on filedocumented in this encounter Care Teams Microbiology Technician Relationship Specialty Start Date End Date Pcp, MD Consuelo PCP - General Generic/Test/No PCP 09/22/19 documented as of this encounter
--- OUTSIDE RECORDS SUMMARY | 2025-04-09 21:18 | XMS_ITS | Encounter Summary ---
Author Organization [facility]: [facility] & [facility] Address [address] [place] [address] [place] [address] Care Team Providers Care Cable Tv Installer Name Role Phone Pcp, No MD Primary Care Provider Unavailabl e Encounter Details Date Type Department Care Team (Late st Contact Info) Description 06/02/2020 Notation [facility] Health Information Management [facility], [address] [place] [address] Generic, Provider [address] [address] INFORMED CONSENT Social History Tobacco Use Types Packs/Day Years [...] How often do you attend bahai or cheondoism serv ices? Never 06/02/2020 Do you belong [...] Complete PHQ-9 if score >=3 4 06/02/2020 [facility] - Occupational Stress Questionnaire Answer Date Recorded [...] on filedocumented in this encounter Care Teams Cable Tv Installer Relationship Specialty Start Date End Date Pcp, MD Consuelo PCP - General Generic/Test/No PCP 09/22/19 documented as of this encounter
--- OUTSIDE RECORDS SUMMARY | 2025-04-09 21:18 | XMS_ITS | Encounter Summary ---
Author Organization [facility]: [facility] Address [address] [place] [address] [address] [place] [address] Care Team Providers Care Community Outreach Coordinator Name Role Phone Pcp, Consuelo MD Primary Care Provider Unavailabl e Reason for Visit * Reason Onset Date Comments Care Coordination Follow-up Call 06/08/2020 Coordination of treatment Encounter Details Date Type Department Care Team (Late st Contact Info) Description 06/08/2020 Recovery Management [facility] [address] [place] [id number] Ashok Seals [facility] [address] [place] [address] Social History Tobacco Use Types Packs/Day Years [...] How often do you attend cheondoism or temple serv ices? Never 06/02/2020 Do you belong [...] if score >=3 4 06/02/2020 [facility] - Occupational Stress Questionnaire Answer [...] AM EST documented as of this encounter Miscellaneous Notes * Telephone Encounter - Ashok JALEN Seals - 06/08/2020 1:43 PM EST Infection Prevention Specialist received a call from James from [employer] stating patient is admitting to them tomorrow from [facility]. This information has been disclosed to you from records protected by federal confidentiality rules (42 CFR PART 2 ). The federal rules prohibit you from making any further disclosure of this information in this record that identifies a patient as having or having had a substance use disorder eitherdirectly, by reference to publicly available information, or through verification of such identification by another person unless further disclosure is expressly permitted by the written consent of the individual whose information is being disclosed or as otherwise permitted by (see 2.31). The federal rules restrict any use of the information to investigate or prosecute withregard to a crime any patient with a substance use disorder, except as provided at Section 2.12(c)(5) and 2.65. Cosigned by DIGNA Griffith at 06/08/2020 3:37 PM EST documented in this encounter Plan of Treatment Not on file documented as of this encounter Visit Diagnoses Not on filedocumented in this encounter Care Teams Community Outreach Coordinator Relationship Specialty Start Date End Date Pcp, MD Consuelo PCP - General Generic/Test/No PCP 09/22/19 documented as of this encounter
--- OUTSIDE RECORDS SUMMARY | 2025-04-09 21:18 | XMS_ITS | Encounter Summary ---
Author Organization [facility]: [facility] & [facility] Address [address] [place] [address] [place] [address] Care Team Providers Care Sap Hana Architect Name Role Phone Pcp, Consuelo MD Primary Care Provider Unavailabl e Encounter Details Date Type Department Care Team (Late st Contact Info) Description 06/02/2020 Notation [facility] Health Information Management [facility], [address] [place] [address] Generic, Provider [address] [address] CONSENT FOR WITS Social History Tobacco Use Types Packs/Day Years [...] Never 06/02/2020 How often do you attend hindu or zoroastrian serv ices? Never 06/02/2020 Do you belong to any clubs o r organizations such as hindu groups, unions, fraternal or athletic groups, or [...] Complete PHQ-9 if score >=3 4 06/02/2020 [facility] - Occupational Stress Questionnaire Answer Date Recorded [...] on filedocumented in this encounter Care Teams Sap Hana Architect Relationship Specialty Start Date End Date Pcp, MD Consuelo PCP - General Generic/Test/No PCP 09/22/19 documented as of this encounter
--- OUTSIDE RECORDS SUMMARY | 2025-04-09 21:18 | XMS_ITS | Patient Health Record ---
Author Organization [facility] Billing Info Address [address] [place] [address] Care Team Providers Care Play Leader Name Role Phone RADHA GARBER Primary Care Provider Unavailabl e Reason For Referral No Information Plan Of Treatment No Information Insurance Providers Payer Name Payer Address Payer Phone Subscriber Number Group Number Insured Name Patient Relationship to Insured Coverage Start Date Coverage End Date ED [facility] [address] [address] [place], [place] [id number] Ashok Hussein Self - patient is the insured 0 [id number]
--- OUTSIDE RECORDS SUMMARY | 2025-04-09 21:18 | XMS_ITS | Encounter Summary ---
Author Organization [facility] [facility] Address [address] [place] [address] [address] [place] [address] Care Team Providers Care Tail Edger Name Role Phone Ivory Garcia MD Primary Care Provider [phone] Reason for Visit * Reason Onset Date Comments Hospital Follow-up 12/06/2023 Encounter Details Date Type Department Care Team (Late st Contact Info) Description 12/06/2023 Telephone Adult Medicine [address] [place] [address] Nick Barragan MD [address] [place] [address] Hospital Follow-up Social History Tobacco Use Types [...] Telephone Encounter - Joan Hernandez CNA - 12/17/2023 2:05 PM EDT Spoke with facility patient was discharged from, stated they had already sent over discharge papersto our fax and received a confirmation for it. ANNABELLE is scheduled for 12/18/23, do not see any discharge paperwork in media. * Telephone Encounter - Joan Hernandez CNA - 12/06/2023 3:12 PM EDT Booked 12/18/23 * Telephone Encounter - Argenis Nicole Prather - 12/06/2023 2:37 PM EDT Patient went in 11/15/23 and discharging tomorrow 12/07/23, was in for SI. Please call Malinda to schedule. If calling tomorrow, please call patient since he is leaving tomorrow morning. documented in this encounter Plan of Treatment Not on file documented as of this encounter Visit Diagnoses Not on filedocumented in this encounter Care Teams Tail Edger Relationship Specialty Start Date End Date Ivory Garcia MD [address] [place] [address] PCP - General Family Medicine 10/08/24 documented as of this encounter
--- OUTSIDE RECORDS SUMMARY | 2025-04-09 21:18 | XMS_ITS | Encounter Summary ---
Author Organization [employer] [facility] Address [address] [place] [address] Care Team Providers Care Abrasives Sales Representative Name Role Phone Nancy Pace NP Primary Care Provider [phone] Ivory Garcia MD Primary Care Provider [phone] Reason for Visit * Reason Onset Date Comments FYI-Admitted 06/12/2023 Encounter Details Date Type Department Care Team (Late st Contact Info) Description 06/12/2023 Telephone Family Medicine [address] [place] [address] Nancy Pace NP [address] [place] [address] FYI-Admitted Social History Tobacco Use Types Packs/Day Years [...] Telephone Encounter - Joan Hernandez CNA - 06/15/2023 10:43 AM EST LVM x1 with cb # * Telephone Encounter - KETTY Lawton - 06/14/2023 12:33 PM EST Covering provider, noted recommend follow up on discharge. * Telephone Encounter - Claritza Danielle - 06/12/2023 9:23 AM EST [facility] pt admitted 06/05 Malinda [phone] documented in this encounter Plan of Treatment Not on file documented as of this encounter Visit Diagnoses Not on filedocumented in this encounter Care Teams Abrasives Sales Representative Relationship Specialty Start Date End Date Nancy Pace NP [address] [place] [address] PCP - General Family Medicine 07/15/22 12/05/23 Ivory Garcia MD [address] [place] [address] PCP - General Family Medicine 10/08/24 documented as of this encounter
[2025-04-09 21:45] VITALS: BP 123/63; PULSE 75; RESP 18; TEMP 36.1; O2SAT 98; BMI 42.6
--- NOTE | 2025-04-10 03:28 | PC.ADMIT ---
Admission Note, Patient arrived to floor 2144 with ambulance on a stretcher. CV signed and witnessed and provider signed, also 12a done. Ambulance staff reported no concerns during ride except HTN x1. Patient VS rechecked and no HTN noted. Patient entered floor personal belongings collected. Pt arrived anxious and tired stating he has had a long day and that Craig was awful. Pt skin check revealed two abrasions to BL shins from falling from a step he did not see when trying to light a cigarette, Otherwise no other concerns. Patient safety check done and changed into hospital destiny/socks with assist from [facility]. Height/weight and VSS collected. No concerns. MD notified of arrival, allergies and med rec completed. Patient did not want to participate, asked to do minimal as pt is exhausted and wants to go to bed. Belongings done, Pt orientated to floor, Safety check board updated and pt put on 5 min checks for statement that he is still experiencing SI however with no plan, but if he had access to something he would hurt himself. Patient did state if he feels he is going to harm himself that he felt comfortable coming to staff for help. Pt is a 39 year old male with Hx of amphetamine use disorder, opioid use disorder, and mood disorder with prior psychiatric hospitalizations and Suicide attempts. Patient arrived to floor r/t SUDS and SI (Jumping in front of a bus). Patient states he [facility] into [facility] end of February and after sometime brother decided he did not want pt living there. According to pt brother kicked pt out and pt took a bus from [place] to [place] where he had begun SI with a plan. Upon speaking to pt he states he thought that he was having trouble getting to his methadone in the mornings and that brother would not help him out. Patient states that he used to have long hair that took him 4 years to grow, but during this breakdown pt cut and shaved his head. Pt seemed regretful about this. Pt anxious, depressed and disengaged not making eye contact. Patient states he has a girlfriend and a baby on the way and he would like to get help for them.
--- NOTE | 2025-04-10 03:48 | PC.ADMIT ---
Admission Note, Patient arrived to floor 2144 with ambulance on a stretcher. CV signed and witnessed and provider signed, 12a done. Ambulance staff reported no concerns during ride except HTN x1. Patient VS rechecked and no HTN noted. Patient entered floor personal belongings collected. Pt arrived anxious and tired stating he has had a long day and that Craig was awful. Pt skin check revealed two abrasions to BL shins from falling from a step he did not see when trying to light a cigarette, Otherwise no other concerns. Patient safety check done and changed into hospital destiny/socks with assist from [facility]. Height/weight and VSS collected. No concerns. Dr. Siu notified of arrival and orders entered, allergies and med rec completed. Patient did not want to participate, asked to do minimal as pt is exhausted and wants to go to bed. Belongings done, Pt orientated to floor, Safety check board updated and pt put on 5 min checks for statement that he is still experiencing SI however with no plan, but if he had access to something he would hurt himself. Patient did state if he feels he is going to harm himself that he felt comfortable coming to staff for help. Med Rec. completed, however, per pt no PCP. Review of med hx disclosed an inconsistency on ordered providers and length of time pt on medications. Consulted with Dr. Siu regarding this as pt has not recently been on prescription medications. Pt stated that he takes Methadone, Clonazepam, and Wellbutrin. MD ordered Methadone and Wellbutrin scheduled at this time. Pt is a 39 year old male with Hx of amphetamine use disorder, opioid use disorder, and mood disorder with prior psychiatric hospitalizations and Suicide attempts. Patient arrived to floor r/t SUDS and SI (wanting to Jump in front of a bus). Patient states he [facility] into [facility] end of February and after sometime brother decided he did not want pt living there. According to pt brother kicked pt out and pt took a bus from [place] to [place] where he had begun SI with a plan. Upon speaking to pt he states he thought that he was having trouble getting to his methadone in the mornings and that brother would not help him out. Patient states that he used to have long hair that took him 4 years to grow, but during this breakdown pt cut and shaved his head. Pt seemed regretful about this. Pt anxious, depressed and disengaged not making eye contact. Patient states he has a girlfriend and a baby on the way and he wants to get better for them. Pt urine tox positive for Amphetamines, Barbiturates, Benzodiazepines, Buprendorphine, Cannabinoids, Cocaine, Ethanol, Fetanyl, Methadone, Opiates, and Oxycodone. EKG done at [facility]. Pt is a smoker, refused alternatives. information collected from pt and medical record. Pt did not participate in most of admission as pt is
[2025-04-10 08:00] VITALS: BP 101/68; PULSE 71; RESP 18; TEMP 35.8; O2SAT 97
--- NOTE | 2025-04-10 08:18 | HO.PM.IMCN ---
History of Present Illness Data of Consult Service Date: 04/10/25 Primary Care Provider: Unknown Physician HPI Reason for consult: Medical consult 39-year-old male with past medical history of major depressive disorder, benzo use disorder, stimulant use disorder, opioid use disorder on methadone presented to [facility] ER with suicidal ideation with plans to jump in front of a bus. Patient recently relapsed after 4 years of being clean and notably had 2 prior suicide attempts. In the ED metabolic panel was without any electrolyte imbalances, liver dysfunction or renal issues. No leukocytosis, no anemia. TSH within normal limits. Tox screen positive for amphetamines and benzos and methadone. On exam patient has no medical concerns. Review of Systems Review of Systems: Denies any shortness of breath, chest pain, palpitations, dizziness, lightheadedness, headaches, dysuria, abdominal pain or discomfort, nausea, vomiting or diarrhea. Denies chills, body aches, muscle aches, fatigue or weight loss. PMFSH Social History Household Members: None Housing: Homeless Do you presently have visiting nurse or other home services: No Patient Tobacco Use Status: Current everyday Tobacco user Tobacco use type: Cigarette Cigarette Packs Per Day: 0.5 Cigarettes Per Day: 10.0 Smoked in Last 30 Days: Yes e-Cigarette/Vaping Use: Never Used Patient Interested in Nicotine Replacement: No Patient Given Instructions on How to Stop Smoking: No (refused) Second Hand Smoke Exposure: No Currently Displaying Signs/Symptoms of Drug Intoxication Withdrawal: No Have you been hit, kicked, punched, or otherwise hurt by someone within the past year? If so, by whom?: No Do you feel safe in your current relationship?: Yes Is there a partner from a previous relationship who is making you feel unsafe now?: No Are you made to feel afraid or neglected: No Advance Directives: No Advance Directives Information Provided: Yes Do you have thoughts of harming others: None Do you have a plan to hurt others: No Plan Recently lost weight without trying: No Eating poorly because of decreased appetite: No Nutrition Risks: No Nutritional Risk Poor oral hygiene: No Meds Allergies Allergy/AdvReac Type Severity Reaction Status Date / Time Penicillins Allergy Severe Anaphylaxis Verified 04/09/25 22:12 phenobarbital Allergy Severe Anaphylaxis Verified 04/09/25 22:13 Active Medications: Current Medications Acetaminophen (Acetaminophen 325 Mg Tablet) 650 mg PO Q6H PRN PRN Reason: Headache/Pain, Scale 1-10 Al Hydroxide/Mg Hydroxide (Magnesium Hydrox/Alum Hydrox 30 Ml Oral.Susp) 30 ml PO Q6H PRN PRN Reason: Heartburn/Nausea Bupropion HCl (Bupropion Hcl Xl 150 Mg Tab.Er.24h) 150 mg PO DAILY TANNER Hydroxyzine HCl (Hydroxyzine Hcl 25 Mg Tablet) 25 mg PO Q6H PRN PRN Reason: mild anxiety Magnesium Hydroxide (Milk Of Magnesia 30 Ml Oral.Susp) 30 ml PO DAILY PRN PRN Reason: Constipation Methadone HCl (Methadone Hcl 20 Mg/2 Ml Oral.Conc) 180 mg PO DAILY@0800 TANNER Nicotine (Nicotine 21 Mg Patch.Td24) 21 mg TRANSDERMA DAILY PRN PRN Reason: smoking cessation Nicotine Polacrilex (Nicotine Polacrilex 2 Mg Gum) 4 mg BUCCAL Q2H PRN PRN Reason: Nicotine Cravings Olanzapine (Olanzapine 5 Mg Tablet) 5 mg PO TID PRN PRN Reason: agitation Trazodone HCl (Trazodone Hcl 50 Mg Tablet) 50 mg PO BEDTIME MRX1 PRN PRN Reason: Insomnia Home Medications ?Medication ?Instructions ?Recorded ?Confirmed ?Last Taken ?Type Wellbutrin XL 1 tab PO DAILY 04/09/25 04/09/25 04/09/25 13:05 History 150 mg methadone 1 dose PO DAILY 04/09/25 04/09/25 11:24 History 180 mg Physical Exam Vital Signs and Narrative: Vital Signs: Last Vital Signs Temp 97.0 F 04/09/25 21:45 Pulse 75 04/09/25 21:45 Resp 18 04/09/25 21:45 BP 123/63 04/09/25 21:45 Pulse Ox 98 04/09/25 21:45 BMI result Body Mass Index 42.6 Alert and oriented X3, calm and cooperative. Answers questions. Neuro: CN II-X11 intact, no deficits, visual acuity intact EYES: PERRLA, EOM intact ENT: Hearing intact, MMM Cardiac: S1 S2 RRR, No ectopy Pulmonary: lungs clear to auscultation, No increased WOB. Abdominal: BS active in all 4 quadrants, no guarding or tenderness. Obese abdomen MSK: Strength 5/5 upper and lower extremities : Deferred Extremities: No edema in lower extremities Psych: Mood stable, Quiet and cooperative. Skin: Warm and dry, Intact Assessment and Plan (1) Polysubstance use disorder: Status: Acute Plan 39-year-old male with past medical history listed below, presented to emergency department [facility] with suicide ideation. Major depressive disorder/benzo use disorder/stimulant use disorder/opioid use disorder on methadone Treatment per psychiatric team Thank you for allowing me to participate in the care of this patient. Will follow with you, please notify medical provider with any changes in condition or concerns.
[2025-04-10] MEDS: buPROPion HCl XL 150 MG TAB.ER.24H PO (08:51)
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
[2025-04-10] MEDS: methADONE HCl 20 MG/2 ML ORAL.CONC 180 MG PO (10:36)
--- NOTE | 2025-04-10 10:56 | PC.NURSE ---
Patient offered influenza vaccine and refused.
[2025-04-10] MEDS: buPROPion HCl XL 300 MG TAB.ER.24H PO (12:02)
[2025-04-11] MEDS: methADONE HCl 20 MG/2 ML ORAL.CONC 180 MG PO (07:45)
[2025-04-11] MEDS: buPROPion HCl XL 150 MG TAB.ER.24H 450 MG PO (07:47)
[2025-04-11 08:28] VITALS: BP 159/90; PULSE 72; O2SAT 97
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
[2025-04-12 07:25] VITALS: BP 136/84; PULSE 83; RESP 18; TEMP 36.1; O2SAT 98
[2025-04-12] MEDS: methADONE HCl 20 MG/2 ML ORAL.CONC 180 MG PO (07:31)
[2025-04-12] MEDS: buPROPion HCl XL 150 MG TAB.ER.24H 450 MG PO (07:32)
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
[2025-04-13] MEDS: methADONE HCl 20 MG/2 ML ORAL.CONC 180 MG PO (07:40)
[2025-04-13 07:51] VITALS: BP 138/91; PULSE 90; RESP 17; TEMP 35.9; O2SAT 97
[2025-04-13] MEDS: buPROPion HCl XL 150 MG TAB.ER.24H 450 MG PO (08:34)
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
[2025-04-14] MEDS: methADONE HCl 20 MG/2 ML ORAL.CONC 180 MG PO (07:55)
[2025-04-14 07:59] VITALS: BP 130/72; PULSE 85; RESP 18; TEMP 36.1; O2SAT 95
[2025-04-14] MEDS: buPROPion HCl XL 150 MG TAB.ER.24H 450 MG PO (08:18)
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
[2025-04-14 20:00] VITALS: BP 117/79; PULSE 71; RESP 16; TEMP 36.3; O2SAT 97
[2025-04-15] MEDS: buPROPion HCl XL 150 MG TAB.ER.24H 450 MG PO (07:36)
[2025-04-15] MEDS: methADONE HCl 20 MG/2 ML ORAL.CONC 180 MG PO (07:36)
[2025-04-15 07:56] VITALS: BP 134/85; PULSE 68; RESP 16; O2SAT 97
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
[2025-04-15 19:38] VITALS: RESP 16
[2025-04-16] MEDS: methADONE HCl 20 MG/2 ML ORAL.CONC 180 MG PO (07:48)
[2025-04-16 07:56] VITALS: BP 167/92; PULSE 76; RESP 16; TEMP 36.3; O2SAT 96
[2025-04-16] MEDS: buPROPion HCl XL 150 MG TAB.ER.24H 450 MG PO (08:37)
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
[2025-04-17] MEDS: methADONE HCl 20 MG/2 ML ORAL.CONC 180 MG PO (07:53)
[2025-04-17 08:10] VITALS: BP 130/86; PULSE 78; RESP 16; TEMP 36.5; O2SAT 96
[2025-04-17] MEDS: buPROPion HCl XL 150 MG TAB.ER.24H 450 MG PO (08:11)
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
== END 2025-04-17 11:30 | disposition home or self-care (01) | DRG 751 ==
PROVIDERS: Admitting Provider Psychiatry & Neurology Psychiatry; Visit Provider Clinical Nurse Specialist Psychiatric/Mental Health, Adult
DX: F33.9 Major depressive disorder, recurrent, unspecified (principal); R45.851 Suicidal ideations; F13.20 Sedative, hypnotic or anxiolytic dependence, uncomplicated; F17.210 Nicotine dependence, cigarettes, uncomplicated; F11.20 Opioid dependence, uncomplicated; F15.90 Other stimulant use, unspecified, uncomplicated; Z71.6 Tobacco abuse counseling; Z79.899 Other long term (current) drug therapy

== ENCOUNTER → 2025-04-09 21:07 | Outpatient (BNV) | payer OTHER, SELFPAY | PROVIDERS: Admitting Provider Psychiatry & Neurology Psychiatry; Visit Provider Nurse Practitioner Family | DX: F19.90 Other psychoactive substance use, unspecified, uncomplicated (principal) | CPT/HCPCS: 99221 ==

== ENCOUNTER → 2025-04-09 21:07 | Outpatient (BNV) | payer OTHER, SELFPAY | PROVIDERS: Admitting Provider Psychiatry & Neurology Psychiatry; Visit Provider Psychiatry & Neurology Psychiatry | DX: F33.2 Major depressive disorder, recurrent severe without psychotic features (principal); F11.20 Opioid dependence, uncomplicated; F13.20 Sedative, hypnotic or anxiolytic dependence, uncomplicated; F15.90 Other stimulant use, unspecified, uncomplicated | CPT/HCPCS: 90792; 99231; 99232 ==